=== PATIENT | female | born 1990 | race Two or more races ===

== ENCOUNTER → 2019-06-04 | Outpatient (CLI) | payer OTHER | END | disposition home or self-care (01) | LOC: PRENATAL 10:30 | DX: Z36.89 Encounter for other specified antenatal screening (principal); O35.3XX1 Maternal care for (suspected) damage to fetus from viral disease in mother, fetus 1; O34.42 Maternal care for other abnormalities of cervix, second trimester; O99.212 Obesity complicating pregnancy, second trimester; Z3A.22 22 weeks gestation of pregnancy; O65.5 Obstructed labor due to abnormality of maternal pelvic organs ==

== ENCOUNTER 2019-09-27 04:38 | Inpatient (IN) | payer OTHER ==
[~2019-09-27] VITALS: Ht 162.6 cm; Wt 92.1 kg
[2019-09-29] MEDS ORDERED: FUSION PLUS CA1 EACH PO (08:38)
== END 2019-09-29 11:04 | disposition home or self-care (01) | DRG 807 ==
LOC: LDR 04:38 → OB/GYN 06:13
PROVIDERS: ADMIT Obstetrics & Gynecology
PROC: 10E0XZZ Delivery of Products of Conception, External Approach (ICD-10-PCS; principal; 2019-09-27)
PROC: 0HQ9XZZ Repair Perineum Skin, External Approach (ICD-10-PCS; 2019-09-27)
PROC: 4A1HXCZ Monitoring of Products of Conception, Cardiac Rate, External Approach (ICD-10-PCS; 2019-09-27)
DX: O70.0 First degree perineal laceration during delivery (principal); Z37.0 Single live birth; Z3A.38 38 weeks gestation of pregnancy